=== PATIENT | female | born 1970 | race Caucasian/White ===

== ENCOUNTER 2017-11-11 16:29 | Outpatient (CLI) | payer OTHER ==
--- NOTE | 2017-11-11 16:58 | RAD ---
RIGHT FINGER TWO VIEW: HISTORY: Pain. COMPARISON: None. FINDINGS: There is an intraarticular fracture at the dorsal aspect of the distal phalanx of the ring finger. IMPRESSION: Minimally dorsally displaced intraarticular fracture at the dorsal aspect of the distal phalanx, ring finger, likely at the extensor tendon insertion. POS: [facility]
== END 2017-11-11 16:30 | disposition home or self-care (01) ==
LOC: RAD-FRANK 16:29
PROVIDERS: ATTEND Nurse Practitioner Family
DX: S69.91XA Unspecified injury of right wrist, hand and finger(s), initial encounter (principal)

== ENCOUNTER 2017-12-17 16:36 | Outpatient (CLI) | payer OTHER | END 2017-12-17 16:37 | disposition home or self-care (01) | LOC: BICMRI 16:36 | PROVIDERS: ATTEND Anesthesiology Pain Medicine | DX: M47.892 Other spondylosis, cervical region (principal); Z98.1 Arthrodesis status | CPT/HCPCS: 72141 ==

== ENCOUNTER 2018-02-17 08:54 | Day surgery (SDC) | payer OTHER ==
[2018-02-16 10:43] VITALS: BMI 31.6
[2018-02-17 10:18] VITALS: BP 98/55; TEMP 98.6
[2018-02-17] MEDS ORDERED: HYDROcodone/Acetaminophen 5/325 mg Tablet ONE (11:09)
--- NOTE | 2018-02-17 11:43 | CT ---
CERVICAL SPINE MYELOGRAM AND POST MYELOGRAPHIC CT: Date: 02/17/18 HISTORY: Neck pain post fusion. TECHNIQUE: Informed consent was obtained from the patient. The right L1-2 interlaminar space was localized using fluoroscopic guidance. The overlying skin was prepped and draped in the usual sterile manner. A 1% l idocaine solution was used to anesthetize the overlying soft tissues. A 22 gauge spinal needle was pl aced under fluoroscopic guidance into the subarachnoid space. A total of 10 mL of Isovue-M300 was inj ected into the subarachnoid space. Fluoroscopy time measured 1.4 minutes and there was a DAP of 672 m Gy*cm^2. The iodinated contrast was injected into the subarachnoid space and was located into the cervical spi ne using gravity. RADIOGRAPHIC FINDINGS: There is ACDF and fusion of C4-5-6-7 using ACDF plates and screws. C1-2: Unremarkable. C2-3: Unremarkable. C3-4: There is some disc desiccation. There is a broad based disc bulge minimally but not significantly com pressing the thecal sac. The neural foramen are patent. C4-5: ACDF plates and screws are in place. There is fusion of the C4-5 disc space. There is a mild broad ba sed disc bulge without evidence of significant thecal sac compression. The neural foramen are patent. C5-6: There is some disc desiccation seen. There is a broad based disc osteophyte complex at C5-6 compressi ng the thecal sac resulting in a moderate degree of central stenosis. Mild to moderate right C5-6 kalin ral foraminal narrowing is seen. The left neural foramen is patent. C6-7: There is a broad based disc osteophyte complex centrally compressing the thecal sac resulting in mild degree of central stenosis. The neural foramen are patent. C7-T1: There is minimal anterolisthesis of C7 on T1. There is minimal facet hypertrophy seen. No significant degree of central stenosis or neural foraminal narrowing is seen. IMPRESSION: Loss of the normal lordotic curvature of the cervical spine. There is ACDF and fusion of C4-5-6-7 josselin tebrae. There is mild anterior displacement of C3 on C4 with a broad based disc bulge at C3-4. POS: [facility]
== END 2018-02-17 11:55 | disposition home or self-care (01) ==
LOC: RAD 08:54
PROVIDERS: ATTEND Neurological Surgery
PROC: B01B1ZZ Fluoroscopy of Spinal Cord using Low Osmolar Contrast (ICD-10-PCS; principal; 2018-02-17)
DX: M54.2 Cervicalgia (principal); G47.00 Insomnia, unspecified; G89.29 Other chronic pain; F32.9 Major depressive disorder, single episode, unspecified; M96.1 Postlaminectomy syndrome, not elsewhere classified; M43.6 Torticollis; Z79.899 Other long term (current) drug therapy; Z88.6 Allergy status to analgesic agent; Z88.7 Allergy status to serum and vaccine; Z98.1 Arthrodesis status
CPT/HCPCS: 62302; 72126